=== PATIENT | female | born 1980 | race Caucasian/White ===

== ENCOUNTER 2017-07-21 19:15 | Inpatient (IN) | payer OTHER ==
[~2017-07-21] VITALS: Ht 157.5 cm; Wt 80.9 kg
[~2017-07-21 19:15] MED LIST: ADDERALL XR 3030 MG PO; ATARAX,VISTARIL25 MG PO
[2017-07-21 20:03] LABS: BASOPHIL (%) 0.2 % (0-1); EOSINOPHIL (%) 1.1 % (0-5); EOSINOPHIL COUNT 0.1 K/uL (0-0.3); HEMATOCRIT 44.6 % (36.0-46.0); HEMOGLOBIN 15.6 G/DL (11.9-15.5); IMMATURE GRANULOCYTE (%) 0.3 % (0.0-0.7); LYMPHOCYTE (%) 32.1 % (15-42); LYMPHOCYTE COUNT 3.4 K/uL (1.0-2.8); MCH 33.1 PG (29.0-34.0); MCV 94.5 FL (83-99); MONOCYTE (%) 5.6 % (3-12); MONOCYTE COUNT 0.6 K/uL (0-0.8); NEUTROPHIL (%) 60.7 % (45-76); NEUTROPHIL COUNT 6.4 K/uL (1.8-6.4); PLATELET COUNT 310 K/uL (156-360); RBC DIS.WIDTH-CV 12.8 % (11.8-14.6); RBC DIS.WIDTH-SD 44.5 % (39-53); RED BLOOD COUNT 4.72 M/uL (3.80-5.20); WHITE BLOOD COUNT 10.6 K/uL (4.1-10.2)
[2017-07-21 20:13] LABS: APPEARANCE SL.HAZY ((CLEAR)); BILIRUBIN NEGATIVE; BLOOD NEGATIVE; COLOR STRAW ((YELLOW)); GLUCOSE (STRIP) NEGATIVE; KETONES 5; LEUKOCYTES NEGATIVE; NITRITE NEGATIVE; PROTEIN (STRIP) NEGATIVE; SPECIFIC GRAVITY 1.003 (1.000-1.030); UROBILINOGEN 0.2 MG/DL (0.2-1.0)
[2017-07-21 20:18] LABS: ALBUMIN 4.3 g/dL (3.2-4.8); CHLORIDE 105 mEq/L (99-109)
[2017-07-21 20:19] LABS: POTASSIUM 3.4 mEq/L (3.7-5.4); SODIUM 144 mEq/L (136-147)
[2017-07-21 20:21] LABS: GLUCOSE 78 mg/dL (70-99); TOTAL PROTEIN 7.6 g/dL (6.4-8.3)
[2017-07-21 20:23] LABS: TOTAL BILIRUBIN 0.6 mg/dL (0.0-1.0)
[2017-07-21 20:24] LABS: SERUM ETHYL ALCOHOL 128 mg/dL
[2017-07-21 20:25] LABS: ALKALINE PHOSPHATASE 97 IU/L (3-129); CREATININE 0.7 mg/dL (0.6-1.3); GFR ESTIMATE (CALCULATED) > 59 mL/min/
[2017-07-21 20:26] LABS: AST (GOT) 26 IU/L (2-34)
[2017-07-21 20:27] LABS: UREA NITROGEN (BUN) 8 mg/dL (9-23)
[2017-07-21 20:27] LABS: AMPHETAMINE NEGATIVE (500 ng/mL); BARBITURATES NEGATIVE (200 ng/mL); BENZODIAZEPINES NEGATIVE (150 ng/mL); BUPRENORPHINE NEGATIVE (10 ng/mL); COCAINE NEGATIVE (150 ng/mL); METHADONE NEGATIVE (200 ng/mL); METHAMPHETAMINE NEGATIVE (500 ng/mL); OPIATES (MORPHINE) NEGATIVE (100 ng/mL); OXYCODONE NEGATIVE (100 ng/mL); PHENCYCLIDINE NEGATIVE (25 ng/mL); PROPOXYPHENE NEGATIVE (300 ng/mL); THC CANNABINOIDS NEGATIVE (50 ng/mL); TRICYCLIC ANTIDEPRESSANTS NEGATIVE (300 ng/mL)
[2017-07-21 20:28] LABS: ALT (GPT) 23 IU/L (3-49); SALICYLATE < 5.0 MG/DL (15-30)
[2017-07-21 20:29] LABS: ACETAMINOPHEN (TYLENOL) < 10 mcg/mL (10-30)
[2017-07-21 20:30] LABS: BACTERIA RARE /HPF; EPITHELIAL CELLS 1+ /HPF; MUCUS TRACE /LPF; RED BLOOD CELLS 0-5 /HPF (0-5); UCUL ADDED? NO; WHITE BLOOD CELLS 0-5 /HPF (0-5)
[2017-07-21 20:40] LABS: QUANTITATIVE HCG < 4.0 MIU/ML
[2017-07-22 08:00] VITALS: BP 138/68
[2017-07-22 15:59] VITALS: BP 143/78
[2017-07-23 08:10] VITALS: BP 118/70
[2017-07-23] MEDS ORDERED: VENLAFAXINE H37.5 M3 PO (13:54)
== END 2017-07-23 14:37 | disposition home or self-care (01) | DRG 880 ==
LOC: EME → EDBD 19:15 → EME 19:15 → 1WEST 22:29 → EDOF 22:29 → 1WEST 07-22 00:08
PROVIDERS: Emergency Medicine
DX: F41.1 Generalized anxiety disorder (principal); F32.9 Major depressive disorder, single episode, unspecified; F43.25 Adjustment disorder with mixed disturbance of emotions and conduct; R45.851 Suicidal ideations; F90.9 Attention-deficit hyperactivity disorder, unspecified type; F17.200 Nicotine dependence, unspecified, uncomplicated
CPT/HCPCS: 80053; 81003; 84702; 85025; 90837; 99281; 99285; G0480